=== PATIENT | female | born 1965 | race Caucasian/White ===

== ENCOUNTER → 2020-12-04 | Outpatient (CLI) | payer OTHER ==
[~2020-12-04] MED LIST: AMLODIPINE BESY10 MG PO; EFFEXOR XR150 MG PO; LASIX 40 MG TAB40 M1 PO; OMEPRAZOLE20 M2 PO
== END ==
LOC: SJCVCIMAG 11:34
PROVIDERS: ATTEND Internal Medicine
DX: I08.3 Combined rheumatic disorders of mitral, aortic and tricuspid valves (principal); I11.9 Hypertensive heart disease without heart failure

== ENCOUNTER → 2020-12-19 | Outpatient (CLI) | payer OTHER ==
[~2020-12-19] VITALS: Ht 157.5 cm; Wt 98.4 kg
[~2020-12-19] MED LIST changes: +ALDACTONE100 MG PO; +CRESTOR20 MG PO; +DEPAKOTE ER500 M1 PO; +ESCITALOPRAM OX20 MG PO; +NORVASC10 MG PO; +OXTELLAR XR300 MG PO; +VITAMIN B-122000 MC1 PO; +VITAMIN B-6100 MG PO; +XANAX 0.5 MG0.5 M1 PO
[2020-12-19 07:25] VITALS: BP 126/64
[2020-12-19 07:36] LABS: HEMATOCRIT 37.2 % (37.0-47.0); HEMOGLOBIN 12.7 gm/dL (12.0-15.0); MCH 32.2 pg (26.0-34.0); MCHC 34.1 g/dL (28.0-37.0); MCV 94.5 fL (80.0-100.0); RBC 3.93 mil/uL (4.20-5.00); RDW 13.1 % (10.5-14.5); WBC 5.2 thou/uL (4.0-11.0)
[2020-12-19 07:44] LABS: CALCIUM 8.5 mg/dL (8.5-10.1); CREATININE 1.1 mg/dL (0.6-1.0); POTASSIUM 3.7 mmol/L (3.5-5.1)
--- NOTE | 2020-12-19 09:09 | TEE ---
[facility] [place] [address] TRANSESOPHAGEAL ECHOCARDIOGRAM Name: MAGDALENA GALEANO Room #: REG TOD Henry#: [id number] Admission: 12/19/20 Attend Phys: Dave Richardson MD, Discharge: Date of : 67 Report #: [id number] THIS REPORT FOR: cc: Aaliyah Ballard MD, Cynthia MD Lundgren,Dave Augustine MD [facility] ~ APPROVED REPORT Study performed: 12/19/2020 07:53:56 EXAM: Comprehensive 2D, Doppler, and color-flow Echocardiogram Patient Location: Out-Patient Room #: 9 Status: routine BSA: 1.98 HR: 63 bpm BP: 136/61 mmHg Rhythm: NSR Other Information Study Quality: Excellent Indications Aortic Valve Disease Echo Enhancing Agent Indication: Rule out Shunt Agent(s) / Amount(s) Used: Agitated Saline 7 cc Procedure After obtaining informed consent, patient underwent transesophageal echo in the [employer]. Type of Sedation : Conscious Sedation Sedation was administered by Nurse. Sedation start time: 0800 Case end Time: 8010 Sedation was achieved intravenously with: Versed (3mg) Fentanyl (100mcg) Transesophageal probe was inserted and advanced into esophagus without difficulty by Dave Richardson MD. Echo enhancement indication: R/O Septal defect. Echo enhancement agent administered: Agitated Saline The NOEMI was performed without complications. Throughout the procedure, the blood pressure, pulse oximetry, cardiac [facility] [address] [address] TRANSESOPHAGEAL ECHOCARDIOGRAM Name: MAGDALENA GALEANO Room #: REG CL [facility].#: [id number] Admission: 12/19/20 Attend Phys: Dave Richardson, Discharge: Date of : 67 Report #: [id number] rhythm, and rate were monitored. The patient tolerated the procedure without adverse effects. Recovery from conscious sedation was uneventful and vital signs were stable. Left Ventricle The left ventricle is normal size. There is normal LV segmental wall motion. Mild concentric left ventricular hypertrophy. The left ventricular systolic function is normal. The left ventricular ejection fraction is within the normal range. LVEF is 60-65%. Right Ventricle The right ventricle is normal size. The right ventricular systolic function is normal. Atria The left atrium size is normal. No thrombus is visualized in the left atrium or appendage. No shunting by contrast bubble injection The right atrium size is normal. Aortic Valve Aortic valve is bicuspid, calcified. Severe stenosis, mild insufficiency Mitral Valve The mitral valve is normal in structure. Mild mitral regurgitation. No evidence of mitral valve stenosis. Tricuspid Valve The tricuspid valve is normal in structure. Mild tricuspid regurgitation. Pulmonic Valve The pulmonary valve is normal in structure. There is no pulmonic valvular regurgitation. Great Vessels The aortic root is normal in size. The ascending aorta is borderline dilated (3.9 cm) IVC is normal in size and collapses >50% with inspiration. Pericardium There is no pericardial effusion. <Conclusion> The left ventricular systolic function is normal. [facility] [address] [place] [address] TRANSESOPHAGEAL ECHOCARDIOGRAM Name: MAGDALENA GALEANO Room #: REG [facility].#: [id number] Admission: 12/19/20 Attend Phys: Dave Richardson, Discharge: Date of : 67 Report #: [id number] There is normal LV segmental wall motion. LVEF is 60-65%. Both atria are normal in size. No thrombus is visualized in the left atrium or appendage. No shunting by contrast bubble injection Aortic valve is bicuspid, calcified. Severe stenosis, mild insufficiency The mitral valve is normal in structure. Mild mitral regurgitation. The ascending aorta is borderline dilated (3.9 cm) There is no pericardial effusion. <ELECTRONICALLY SIGNED> By: Dave Richardson MD, [facility] 12/19/20908 8 8 Dave Richardson MD, [facility] /INF
--- NOTE | 2020-12-19 09:30 | CATHLAB ---
[facility] [place] [address] INVASIVE PROCEDURE REPORT Name: MAGDALENA GALEANO Room #: REG TOD Henry#: [id number] Admission: 12/19/20 Attend Phys: Dave Richardson MD, Discharge: Date of : 67 Report #: [id number] THIS REPORT FOR: cc: Aaliyah Ballard MD, Cynthia MD Lundgren, Craig H. MD [facility] ~ APPROVED REPORT Study performed: 12/19/2020 08:06:18 Patient Details Patient Status: Out-Patient Room #: The patient is a 55 year-old female Event Personnel Dave Richardson Supervisor Building Maintenance, Yas Walker RTR Monitor, Tony Acosta RTR Scrub, Sonam Coley RN clerical production worker Performed Art Access - R femoral artery* Coronary Angiography Only [id number] CORANG Supravalvular Aortography Injection [id number] ISVA Hemostasis w/ Mynx Indication Chest pain Procedure Narrative The patient was brought electively to the Cardiac Catheterization Laboratory and was prepped and draped in a sterile manner. The Right Groin^ was infiltrated with 1% Lidocaine subcutaneous anesthesia. A PINNACLE 6FR Sheath #[id number] sheath was inserted into the RFA^. Coronary angiography was performed using coronary diagnostic catheters. The right coronary system was accessed and visualized with a JR4 catheter. The left coronary system was accessed and visualized with a JL4 catheter. The left ventricle was accessed and visualized with a PIGTAIL catheter. Left ventricular/Aortic Valve gradient assessed via catheter pullback. Closure device was deployed with a 6 Fr MYNXGRIP 6/7F #[id number]. Hemostasis was obtained with manual pressure following sheath removal without any complications. The patient tolerated the procedure well and there were no complications associated with the procedure. There was no hematoma. Intraoperative Conscious Sedation [facility] [address] [place] [address] INVASIVE PROCEDURE REPORT Name: FROYLANMAGDALENA ALBINA Room #: REG Carl#: [id number] Admission: 12/19/20 Attend Phys: Dave Richardson, Discharge: Date of : 67 Report #: [id number] Sedation start time: 826 Case end Time: 899 Fluoro Time: 2.30 minutes Dose: DAP 7983.00 cGycm2 933 mGy Contrast Type and Amount: Visipaque 85 ml Coronary Angiography The patient's coronary anatomy is right dominant. Diagnostic Cath Left Main Normal left main LAD Normal left anterior descending Diagonal 1 Large angiographically normal, single diagonal branch Circumflex Small, nondominant circumflex comprised of a moderate sized marginal branch OM1 Normal OM1 Right Coronary Right coronary is dominant, angiographically normal R PDA Normal posterior descending RPLV Normal posterior lateral branch Left Ventriculography Aortography demonstrated mild dilatation of the ascending thoracic aorta. The aortic valve appeared to be bicuspid and calcified. Trace aortic insufficiency Hemodynamics The aortic pressure is 125/68 mmHg with a mean of 95 mmHg. Conclusion 1. Bicuspid and severely stenotic aortic valve (see echocardiographic findings) 2. Normal left main 3. Normal coronary vasculature. Right coronary dominant circulation 4. Mild dilatation of the thoracic ascending aorta <ELECTRONICALLY SIGNED> By: Dave Richardson MD, [facility] 12/19/20928 8 8 Dave Richardson MD, FAC /INF
== END | disposition home or self-care (01) ==
LOC: CATH 06:22
PROVIDERS: ATTEND Internal Medicine
DX: R07.9 Chest pain, unspecified (principal); I08.3 Combined rheumatic disorders of mitral, aortic and tricuspid valves; I11.0 Hypertensive heart disease with heart failure; I50.9 Heart failure, unspecified; E78.5 Hyperlipidemia, unspecified; K21.9 Gastro-esophageal reflux disease without esophagitis; G47.33 Obstructive sleep apnea (adult) (pediatric); E66.09 Other obesity due to excess calories; Z98.890 Other specified postprocedural states; Z79.899 Other long term (current) drug therapy; Z87.891 Personal history of nicotine dependence; Z82.49 Family history of ischemic heart disease and other diseases of the circulatory system; Z88.8 Allergy status to other drugs, medicaments and biological substances

== ENCOUNTER → 2021-01-22 | Outpatient (CLI) | payer OTHER ==
[~2021-01-22] MED LIST changes: +ADULT LOW DOSE81 MG PO; +ALDACTONE50 MG PO; +AUGMENTIN 875-1 EACH PO; +FOLIC ACID1 MG PO; +IPRAT-ALBUT 0.5-3 ML INH; +IRON325 PO; +LEXAPRO 10 MG T10 M1 PO; +METOPROLOL SUCC50 MG PO; +MIRALAX17 GM PO; +MUCINEX600 MG PO; +NEURONTIN 300M300 M2 PO; +NORVASC5 MG PO; +PACERONE 200 M200 M1 PO
[2021-01-22 13:46] LABS: URINE BILIRUBIN NEGATIVE (Negative); URINE BLOOD NEGATIVE (Negative); URINE CLARITY CLEAR; URINE COLOR YELLOW; URINE GLUCOSE-RANDOM* NEGATIVE (Negative); URINE KETONES TRACE (Negative); URINE LEUKOCYTES-REFLEX NEGATIVE (Negative); URINE NITRITE-REFLEX NEGATIVE (Negative); URINE PROTEIN (DIPSTICK) NEGATIVE (Negative); URINE UROBILINOGEN 0.2 E.U./dl (0.2-1.0)
[2021-01-22 13:49] LABS: ABSOLUTE NEUTROPHILS 4.1 thou/uL (1.4-8.2); BASOPHILS 1.1 % (0.0-2.0); EOSINOPHILS 0.1 % (0.0-3.0); HEMATOCRIT 38.9 % (37.0-47.0); HEMOGLOBIN 13.5 gm/dL (12.0-15.0); LYMPHOCYTES 24.3 % (24.0-44.0); MCH 32.4 pg (26.0-34.0); MCHC 34.6 g/dL (28.0-37.0); MCV 93.9 fL (80.0-100.0); MONOCYTES 8.5 % (1.0-8.0); PLATELET COUNT 197 thou/uL (150-400); RBC 4.15 mil/uL (4.20-5.00); RDW 12.7 % (10.5-14.5); WBC 6.2 thou/uL (4.0-11.0)
[2021-01-22 14:02] LABS: APTT 27.6 Seconds (24.5-32.8); CALCIUM 8.9 mg/dL (8.5-10.1); CREATININE 1.2 mg/dL (0.6-1.0); INR 0.98; POTASSIUM 4.2 mmol/L (3.5-5.1); PROTIME 10.7 Seconds (10.5-12.1); TOTAL BILIRUBIN 0.2 mg/dL (0.2-1.0); TOTAL PROTEIN 7.1 g/dL (6.4-8.2)
--- NOTE | 2021-01-22 15:44 | EKG ---
[address] [place] [address] ELECTROCARDIOGRAM REPORT Name: MAGDALENA GALEANO Room #: REG CL Carl#: [id number] Admission: 01/22/21 Attend Phys: Manas Wilalms MD Discharge: Date of : 67 Report #: [id number] [facility] Test Date: 2021-01-22 Test Time: 13:42:57 Pat Name: MAGDALENA GALEANO Department: Room: Gender: F Glass Deposition Tender: MANFRED FLEMING : 1965 Requested By: Manas Willams Order Number: [id number] : Seng Ernst Measurements Intervals [place] Rate: 72 P: 53 OR: 202 QRS: 36 QRSD: 95 T: 143 QT: 408 QTc: 447 Interpretive Statements Sinus rhythm Borderline prolonged OR interval Abnormal T, consider ischemia, lateral leads Baseline wander in lead(s) V3,V5,V6 Compared to ECG 04/18/2010 18:47:32 Possible ischemia now present Sinus tachycardia no longer present Poor R-wave progression no longer present T-wave abnormality still present Electronically Signed On 01-22-2021 15:43:54 CDT by Seng Ernst [email or web address] <ELECTRONICALLY SIGNED> By: Seng Ernst MD, [facility] 01/22/21 1543 1342 1342 Seng Ernst MD, [facility] /EPI
[2021-01-23 01:06] LABS: GLYCOHEMOGLOBIN (HGB A1C) 5.3 % (4.8-5.6)
== END ==
LOC: PAC 12:37
PROVIDERS: ATTEND Surgery Vascular Surgery
DX: Z01.812 Encounter for preprocedural laboratory examination (principal)

== ENCOUNTER → 2021-01-24 | Outpatient (CLI) | payer OTHER ==
[~2021-01-24] MED LIST changes: -ADULT LOW DOSE81 MG PO; -ALDACTONE50 MG PO; -AUGMENTIN 875-1 EACH PO; -FOLIC ACID1 MG PO; -IPRAT-ALBUT 0.5-3 ML INH; -IRON325 PO; -LEXAPRO 10 MG T10 M1 PO; -METOPROLOL SUCC50 MG PO; -MIRALAX17 GM PO; -MUCINEX600 MG PO; -NEURONTIN 300M300 M2 PO; -NORVASC5 MG PO; -PACERONE 200 M200 M1 PO
--- NOTE | ~2021-01-24 | HC ---
[facility] [place] [address] CONSULTATION Name: MAGDALENA GALEANO Room #: REG RODRÍGUEZJose Henry#: [id number] Admission: 01/24/21 Attend Phys: Brittni Payne DO Discharge: Date of : 67 Report #: [id number] THIS REPORT FOR: cc: Jagruti Lockett MD, Genelle J. MD Lundgren, Craig H. MD [facility] ~ DATE OF SERVICE: 01/24/2021 REASON FOR CONSULTATION: Aortic stenosis. HISTORY OF PRESENT ILLNESS: The patient is a 55-year-old woman with a history of heart block with remote pacemaker implantation. Her history includes hypertension, dyslipidemia, and a bicuspid calcific aortic valve that is now severely stenotic and symptomatic. She is admitted for aortic valve replacement. The patient reports fairly recent history of exertional breathlessness. Recent testing has demonstrated a severely stenotic bicuspid aortic valve. There is mild dilatation of the proximal ascending aorta. Coronary angiography demonstrated normal coronary vasculature. She denies near syncope or syncope. She has had occasional isolated symptomatic premature ventricular complexes, but nothing sustained. Blood pressure readings generally have been well controlled. She has a long history of a seizure disorder and has been under the care of a neurologist for this. No fevers, chills or night sweats. No orthopnea or paroxysmal nocturnal dyspnea. No issues or problems related to her complex pharmacologic regimen. ALLERGIES: She is ALLERGIC TO LARA INHIBITORS. MEDICINES: Include amlodipine 10 mg daily, Depakote 500 mg daily, Lexapro 20 mg daily, Lasix 40 mg daily, omeprazole 20 mg daily, Trileptal 300 mg twice daily, rosuvastatin 20 mg daily, Aldactone 100 mg daily. PAST HISTORY: Medical records have been reviewed and include a history of cholecystectomy, dual chamber pacemaker implantation, dyslipidemia, hypertension, seizure disorder, sleep apnea. SOCIAL HISTORY: She is a former smoker. FAMILY HISTORY: Notable for premature coronary artery disease. REVIEW OF SYSTEMS: All systems negative except as that noted above. PHYSICAL EXAMINATION: GENERAL: A pleasant woman in no distress, 5 feet 2 inches tall, 222 pounds. VITAL SIGNS: Blood pressure is 132/80, heart rate is 65 and regular. There are [facility] [address] [place] [address] CONSULTATION Name: MAGDALENA GALEANO Room #: REG [facility].#: [id number] Admission: 01/24/21 Attend Phys: Brittni Payne DO Discharge: Date of : 67 Report #: [id number] neither xanthelasma, subcutaneous xanthomata, oral mucosal or digital cyanosis or kyphoscoliosis present. CHEST: Clear to auscultation and percussion. CARDIOVASCULAR: Regular rate and rhythm with a harsh 3/6 systolic murmur at the base. ABDOMEN: Soft and nontender. EXTREMITIES: Without cyanosis, clubbing or edema. Radial pulses are 2+. NEUROLOGIC: She is alert with a nonfocal exam. DIAGNOSTIC DATA: EKG, sinus rhythm with first degree AV block, nonspecific ST segment abnormality. She has a Medtronic pacemaker. This is functioning normally. Generally A-pacing and V-pacing less than 1% of the time, JOSEFINA in 2 years. LABORATORY DATA: Sodium 138, potassium 4.2, creatinine 1.2. White count 6.2, hemoglobin 13.5, platelet count 197. Chest x-ray is normal. IMPRESSION: 1. Severe symptomatic aortic stenosis. 2. Bicuspid aortic valve. 3. Hypertension. 4. Dyslipidemia. 5. Sleep apnea. 6. History of heart block with prior pacemaker implantation. 7. Seizure disorder. RECOMMENDATIONS: 1. Postoperative pacemaker interrogation. 2. Continued efforts towards aggressive risk factor modification. 3. Aortic valve replacement. This was discussed in detail. Questions have been answered. We will follow along with you. Thank you for asking me to participate in the patient's care. By: 1157 [id number] Dave Richardson MD, FACC /nt
== END ==
LOC: LAB 10:32
PROVIDERS: ATTEND Student in an Organized Health Care Education/Training Program
DX: Z01.812 Encounter for preprocedural laboratory examination (principal); Z20.822 Contact with and (suspected) exposure to COVID-19

== ENCOUNTER → 2021-01-27 | Outpatient (CLI) | payer OTHER | LOC: SJCVCIMAG 07:22 | PROVIDERS: ATTEND Internal Medicine | DX: I65.23 Occlusion and stenosis of bilateral carotid arteries (principal); I10 Essential (primary) hypertension ==

== ENCOUNTER 2021-01-28 06:11 | Inpatient (IN) | payer OTHER ==
[2021-01-28] VITALS (26 sets, daily range): BP systolic 88–126; BP diastolic 37–61
[~2021-01-28] VITALS: Ht 157.5 cm; Wt 100.7 kg
[2021-01-28 12:46] LABS: HEMATOCRIT 22.3 % (37.0-47.0); HEMOGLOBIN 7.5 gm/dL (12.0-15.0); MCH 32.2 pg (26.0-34.0); MCHC 33.6 g/dL (28.0-37.0); MCV 95.6 fL (80.0-100.0); RBC 2.33 mil/uL (4.20-5.00); RDW 12.4 % (10.5-14.5); WBC 6.4 thou/uL (4.0-11.0)
[2021-01-28 13:01] LABS: APTT 28.7 Seconds (24.5-32.8); PROTIME 17.9 Seconds (10.5-12.1)
[2021-01-28 13:05] LABS: INR 1.68
[2021-01-28 13:32] LABS: POC BE -1 mmol/L (-2.0 to +3.0); POC CA IONIZED 4.5 mg/dL (4.5-5.3); POC GLUCOSE 134 mg/dL (70-99); POC HCO3 23.6 mmol/L (22.0-26.0); POC HEMOGLOBIN 7.5 g/dL (12.0-15.0); POC POTASSIUM 3.9 mmol/L (3.5-5.1); POC SODIUM 140 mmol/L (136-145); POC pCO2 36.3 mmHg (35.0-45.0); POC pH 7.421 (7.360-7.450)
[2021-01-28 13:32] LABS: POC BE 4 mmol/L (-2.0 to +3.0); POC CA IONIZED 3.8 mg/dL (4.5-5.3); POC GLUCOSE 117 mg/dL (70-99); POC HCO3 28.2 mmol/L (22.0-26.0); POC HEMOGLOBIN 8.5 g/dL (12.0-15.0); POC POTASSIUM 4.1 mmol/L (3.5-5.1); POC SODIUM 138 mmol/L (136-145); POC pCO2 39.9 mmHg (35.0-45.0); POC pH 7.458 (7.360-7.450)
[2021-01-28 13:32] LABS: POC BE 2 mmol/L (-2.0 to +3.0); POC GLUCOSE 158 mg/dL (70-99); POC HCO3 27.2 mmol/L (22.0-26.0); POC HEMOGLOBIN 7.8 g/dL (12.0-15.0); POC POTASSIUM 4.4 mmol/L (3.5-5.1); POC SODIUM 138 mmol/L (136-145); POC pCO2 44.1 mmHg (35.0-45.0); POC pH 7.399 (7.360-7.450)
[2021-01-28 13:32] LABS: POC BE 5 mmol/L (-2.0 to +3.0); POC CA IONIZED 4.6 mg/dL (4.5-5.3); POC GLUCOSE 104 mg/dL (70-99); POC HEMOGLOBIN 12.9 g/dL (12.0-15.0); POC POTASSIUM 4.1 mmol/L (3.5-5.1); POC SODIUM 138 mmol/L (136-145); POC pCO2 38.7 mmHg (35.0-45.0); POC pH 7.482 (7.360-7.450)
[2021-01-28 13:32] LABS: POC BE -3 mmol/L (-2.0 to +3.0); POC CA IONIZED 4.2 mg/dL (4.5-5.3); POC GLUCOSE 117 mg/dL (70-99); POC HCO3 21.4 mmol/L (22.0-26.0); POC HEMOGLOBIN 9.9 g/dL (12.0-15.0); POC POTASSIUM 4.4 mmol/L (3.5-5.1); POC SODIUM 141 mmol/L (136-145); POC pCO2 34.1 mmHg (35.0-45.0); POC pH 7.406 (7.360-7.450)
[2021-01-28 13:32] LABS: POC BE 3 mmol/L (-2.0 to +3.0); POC GLUCOSE 175 mg/dL (70-99); POC HCO3 27.8 mmol/L (22.0-26.0); POC HEMOGLOBIN 7.5 g/dL (12.0-15.0); POC SODIUM 135 mmol/L (136-145); POC pCO2 43.4 mmHg (35.0-45.0); POC pH 7.414 (7.360-7.450)
[2021-01-28 13:32] LABS: POC BE 3 mmol/L (-2.0 to +3.0); POC CA IONIZED 4.1 mg/dL (4.5-5.3); POC GLUCOSE 142 mg/dL (70-99); POC HCO3 28.9 mmol/L (22.0-26.0); POC HEMOGLOBIN 8.5 g/dL (12.0-15.0); POC POTASSIUM 4.4 mmol/L (3.5-5.1); POC SODIUM 139 mmol/L (136-145); POC pCO2 51.2 mmHg (35.0-45.0); POC pH 7.359 (7.360-7.450)
[2021-01-28 13:32] LABS: POC BE 3 mmol/L (-2.0 to +3.0); POC CA IONIZED 4.1 mg/dL (4.5-5.3); POC GLUCOSE 180 mg/dL (70-99); POC HCO3 27.9 mmol/L (22.0-26.0); POC HEMOGLOBIN 8.2 g/dL (12.0-15.0); POC POTASSIUM 4.4 mmol/L (3.5-5.1); POC SODIUM 139 mmol/L (136-145); POC pCO2 46.2 mmHg (35.0-45.0); POC pH 7.388 (7.360-7.450)
[2021-01-28 13:32] LABS: POC BE 7 mmol/L (-2.0 to +3.0); POC CA IONIZED 4.3 mg/dL (4.5-5.3); POC GLUCOSE 123 mg/dL (70-99); POC HCO3 29.2 mmol/L (22.0-26.0); POC HEMOGLOBIN 12.2 g/dL (12.0-15.0); POC POTASSIUM 3.8 mmol/L (3.5-5.1); POC SODIUM 137 mmol/L (136-145); POC pCO2 34.5 mmHg (35.0-45.0); POC pH 7.535 (7.360-7.450)
[2021-01-28 14:51] LABS: HEMATOCRIT 32.3 % (37.0-47.0); MCH 32.2 pg (26.0-34.0); MCHC 33.8 g/dL (28.0-37.0); MCV 95.4 fL (80.0-100.0); RBC 3.39 mil/uL (4.20-5.00); RDW 12.7 % (10.5-14.5)
[2021-01-28 14:53] LABS: CALCIUM 7.5 mg/dL (8.5-10.1); CREATININE 1.2 mg/dL (0.6-1.0); MAGNESIUM 2.5 mg/dL (1.8-2.4); POTASSIUM 5.3 mmol/L (3.5-5.1)
[2021-01-28 14:53] LABS: BE(vivo) -2.4 mmol/L (-2 to +3); HCO3 20.3 mmol/L (22.0-26.0); PCO2 28.5 mmHg (35.0-45.0); PO2 116.2 mmHg (80.0-100.0); sO2 98.5 % (92.0-98.0)
[2021-01-28 14:54] LABS: HEMOGLOBIN 10.9 gm/dL (12.0-15.0)
[2021-01-28 15:03] LABS: APTT 27.4 Seconds (24.5-32.8); INR 1.21; PROTIME 13.1 Seconds (10.5-12.1)
--- NOTE | 2021-01-28 17:24 | NUR ---
PT ARRIVED FROM OR AT 1430 TO ICU ROOM 251 ACCOMPANIED BY OR NURSING STAFF, ANESTHESIOLOGIST AND NAHOMI LY. PT INTUBATED AND SEDATED WITH PRECEDEX. PT WAS CONNECTED TO ICU MONITORS. PT HAS RIGHT SWAN UMESH, RIGHT RADIAL ART LINE. RIGHT FEMORAL ART LINE. PT WAS GIVEN FFP IMMEDIATELY AFTER ARRIVING TO ICU.PATIENT'S MOTHER UPDATED ON PATIENT SITUATION AND WAS INFORMED BY ICU VISITATION POLICY, MASK MANDATE AND ICU PHONE NUMBERS. CONTINUE TO MONITOR.
[2021-01-28 19:29] LABS: BE(vivo) -4.2 mmol/L (-2 to +3); HCO3 21.9 mmol/L (22.0-26.0); PCO2 44.3 mmHg (35.0-45.0); PO2 86.7 mmHg (80.0-100.0); pH 7.312 (7.360-7.450); sO2 95.8 % (92.0-98.0)
[2021-01-28 21:38] LABS: BE(vivo) -4.1 mmol/L (-2 to +3); HCO3 22.1 mmol/L (22.0-26.0); PCO2 44.7 mmHg (35.0-45.0); PO2 108.6 mmHg (80.0-100.0); sO2 97.5 % (92.0-98.0)
[2021-01-28 21:39] LABS: pH 7.311 (7.360-7.450)
--- NOTE | 2021-01-28 23:07 | NUR ---
1899- Patient placed on CPAP 1929- ABG drawn and resulted. Dr. Willams at bedside; gave okay to extubate. 1944- Patient extubated to 60% faceshield without difficulty. OGT removed. Patient awake and following commands. Repeat ABG within normal limits. Pt with good cough effort. 2244- Fentanyl given for pain releif. U/O noted. CT drainage noted to be minimal. SBP 112
[2021-01-29] VITALS (63 sets, daily range): BP systolic 95–145; BP diastolic 47–73
[2021-01-29 05:05] LABS: HEMOGLOBIN 9.6 gm/dL (12.0-15.0); MCH 33.1 pg (26.0-34.0); MCHC 34.4 g/dL (28.0-37.0); MCV 96.2 fL (80.0-100.0); RBC 2.91 mil/uL (4.20-5.00); RDW 13.1 % (10.5-14.5); WBC 8.4 thou/uL (4.0-11.0)
[2021-01-29 05:22] LABS: CALCIUM 7.2 mg/dL (8.5-10.1); CREATININE 1.3 mg/dL (0.6-1.0); MAGNESIUM 2.5 mg/dL (1.8-2.4); POTASSIUM 4.4 mmol/L (3.5-5.1)
--- NOTE | 2021-01-29 05:45 | NUR ---
Patient has been fairly comfortable throughout the night. Fentanyl given x3 for pain management. Heart rate and rhythm stable. Blood pressures have come up to the 120's from the 90's. Adequate oxygenation on 4L per NC. Good cough effort. Unable to sit patient upright or get out of bed due to the femoral arterial line. No fevers. Am labs sent and results reviewed. See documentation on interventions for assessment details. Patient is progressing towards goals.
--- NOTE | 2021-01-29 07:16 | EKG ---
[address] [place] [address] ELECTROCARDIOGRAM REPORT Name: MAGDALENA GALEANO Room #: 251-P ADM IN M.R.#: [id number] Admission: 01/28/21 Attend Phys: Manas Willams MD Discharge: Date of : 67 Report #: [id number] [facility] Test Date: 2021-01-28 Test Time: 14:47:54 Pat Name: MAGDALENA GALEANO Department: Room: 251 Gender: F Taker Down: DAVID : 1965 Requested By: Filemon Lagunas Order Number: [id number] MD: Seng Ernst Measurements Intervals [place] Rate: 62 P: 75 CA: 227 QRS: 55 QRSD: 85 T: 128 QT: 489 QTc: 497 Interpretive Statements Sinus rhythm Prolonged CA interval Compared to ECG 01/22/2021 13:42:57 T-wave abnormality no longer present Electronically Signed On 01-29-2021 7:16:44 CDT by Seng Ernst [email or web address] <ELECTRONICALLY SIGNED> By: Seng Ernst MD, [facility] 01/29/21 0716 1447 1447 Seng Ernst MD, FACC /EPI
--- NOTE | 2021-01-29 07:51 | O ---
[facility] [place] [address] OPERATIVE REPORT Name: MAGDALENA GALEANO Room #: 251-P ADM IN M.R.#: [id number] Admission: 01/28/21 Attend Phys: Manas Willams MD Discharge: Date of : 67 Report #: [id number] THIS REPORT FOR: cc: Jagruti Lockett MD, Genelle J. MD Forman,Manas Ott MD ~ DATE OF SERVICE: 01/28/2021 PREOPERATIVE DIAGNOSIS: Aortic valve stenosis. POSTOPERATIVE DIAGNOSIS: Aortic valve stenosis. OPERATION: Aortic valve replacement with 21 mm Cr-Ortega Inspiris device and right femoral artery line placement. SURGEON: Dr. Manas Willams. MANAGER PROCESS IMPROVEMENT: NAHOMI Diaz. ANESTHESIA: General. INDICATIONS: The patient is a 55-year-old with what appears to be aortic valve stenosis related to a calcified bicuspid valve. The patient has normal coronary arteries. The patient has increasing fatigue and exertion on activity and is quite limited. The patient had been evaluated and rejected for TAVR and minimally invasive approach. The patient was counseled regarding choices for aortic valve prosthesis including comparing and contrasting mechanical and biological devices with the prospect of transarterial valve replacement for a prosthetic valve failure in the future and the patient chose to avoid the anticoagulation needed with the mechanical valve and opted for the biological device. FINDINGS AND TECHNIQUE: After general anesthesia was established, exposure was obtained through median sternotomy. Pericardial well was made. Cannulation sutures were placed. Heparin was given. Aorta was cannulated. Right atrium was cannulated. Cardioplegia needle was positioned in the aortic root. Retrograde cardioplegia catheter was placed in the coronary sinus. Cardiopulmonary bypass was established. Aorta was cross clamped. Antegrade and retrograde cardioplegia were given. Ice was poured into the pericardial well. The heart was stopped. During electromechanical arrest, the aortic valve was replaced, cardioplegia was given every 15 minutes through the retrograde catheter and additional doses were [facility] [address] [place] [place] [address] OPERATIVE REPORT Name: MAGDALENA GALEANO Room #: 251-P ADM IN M.R.#: [id number] Admission: 01/28/21 Attend Phys: Manas Willams MD Discharge: Date of : 67 Report #: [id number] also given directly into the right coronary ostium. An aortotomy was made approximately 15 mm above the right coronary ostium. The aortic valve was exposed. The aortic valve was severely calcified. It looked as though the non and right coronary cusps were fused, but the entire valve was severely calcified. The calcified leaflets were excised, the calcified annulus was debrided. When the annulus was satisfactory for implant the cavity of the ventricle was irrigated and then interrupted Ethibond sutures were placed sequentially through the [place] annulus and then through the sewing ring of a 21 valve chosen for both annulus and the patient size. The device was lowered into place and sutures were secured with the Cor-Knot device. The valve appeared to seat nicely. The aortotomy was closed using Carrel technique and then the patient was placed in Trendelenburg. Warm retrograde cardioplegia was given followed by warm continuous blood to the coronary sinus. When this infusion was complete, the crossclamp was removed. Deairing maneuvers were performed. As the patient warmed, nice cardiac activity resumed, chest tubes and pacing wires were placed. When the patient was warmed, she was weaned from cardiopulmonary bypass. Venous cannula was removed. Protamine was given, the aortic cannula was removed. When hemostasis was satisfactory, chest was irrigated with antibiotic solution and closed in the usual fashion. It should be mentioned that at the outset of the case there was difficulty obtaining a decent arterial blood pressure through the radial line and for this reason, right femoral line was placed and secured in position and this was the monitor that we used throughout the case. All counts were reported as correct. <ELECTRONICALLY SIGNED> By: Manas Willams MD 01/29/21 0751 1553 1632 Manas Willams MD /nt
--- NOTE | 2021-01-29 08:19 | NUR ---
RD consult received. S/P aortic valve replacement due to stenosis. POD 1. Still npo. Hx HLD, CHF. Extreme obesity, BMI 40.2. Rec advance diet when medically appropriate to heart healthy. Will address any nutrition education needs once transferred out of ICU.
--- NOTE | 2021-01-29 15:54 | EKG ---
[address] [place] [address] ELECTROCARDIOGRAM REPORT Name: MAGDALENA GALEANO Room #: 251-P ADM IN M.R.#: [id number] Admission: 01/28/21 Attend Phys: Manas Willams MD Discharge: Date of : 67 Report #: [id number] [facility] Test Date: 2021-01-29 Test Time: 10:31:18 Pat Name: MAGDALENA GALEANO Department: Room: 251 Gender: F Supply Clerk: luis armando : 1965 Requested By: Filemon Lagunas Order Number: [id number] : Seng Ernst Measurements Intervals [place] Rate: 82 P: 63 PA: 202 QRS: 26 QRSD: 75 T: 143 QT: 387 QTc: 452 Interpretive Statements Sinus rhythm Borderline prolonged PA interval Low voltage, precordial leads Repol abnrm suggests ischemia, lateral leads Compared to ECG 01/28/2021 14:47:54 Low QRS voltage now present Early repolarization now present Possible ischemia now present Electronically Signed On 01-29-2021 15:54:02 CDT by Seng Ernst [email or web address] <ELECTRONICALLY SIGNED> By: Seng Ernst MD, FAC 01/29/21 1554 1031 1031 Seng Ernst MD, [facility] /EPI
[2021-01-29 17:00] LABS: FOLIC ACID 2.1 ng/mL (8.6-58.9)
--- NOTE | 2021-01-29 17:08 | NUR ---
Chart reviewed and case discussed with the care team. Pt is s/p AVR pod#1 and remains in the ICU with CT in place. She was extubated yesterday and started working with therapy today. She is from home and lives with her mother and sister. She has 4 steps into the home and 8 up to the bedroom. She was indep with gait and adl's prior to admission, works and has no dme. Health ins per her employer and pcp is Dr Jagruti Lockett. No cm interventions are indicated at this time. DC plan is outpt cardiac rehab. CM to follow along and reassess once in CCU should dc needs arise.
[2021-01-30] VITALS (23 sets, daily range): BP systolic 108–158; BP diastolic 49–80
--- NOTE | 2021-01-30 05:25 | NUR ---
Patient tired from the day. Pt states she is ready for bed. HS med given, including neurontin for the arm pain. Patient states it is a bruning, constant, sharp pain from elbow to fingers. Pain meds given twice this shift. Patient has been sleeping well. Heart rate and rhythm stable in the 70's. Blood pressures 140-150s. Afebrile. Adequate oxygenation on 4L overnight. Some sleep apnea noted. Frequent assist with cough/deep breathing. No family called this shift. See documentation on interventions for assessment details. Patient is progressing towards goals.
[2021-01-30 05:27] LABS: HEMATOCRIT 27.6 % (37.0-47.0); HEMOGLOBIN 9.5 gm/dL (12.0-15.0); MCH 33.2 pg (26.0-34.0); MCHC 34.3 g/dL (28.0-37.0); MCV 96.9 fL (80.0-100.0); RBC 2.85 mil/uL (4.20-5.00); RDW 13.2 % (10.5-14.5); WBC 11.9 thou/uL (4.0-11.0)
[2021-01-30 05:50] LABS: ALBUMIN 3.2 g/dL (3.4-5.0); CALCIUM 7.8 mg/dL (8.5-10.1); POTASSIUM 4.5 mmol/L (3.5-5.1); TOTAL BILIRUBIN 0.3 mg/dL (0.2-1.0)
--- NOTE | 2021-01-30 11:56 | NUR ---
PT ASSISTED TO CHAIR AT 0800 FOR BREAKFAST. SPO2 IS 92-94%, SBP 130S, AND RR IS REGULAR AND EVEN 16-18 BPM. HER UO IS ADEQUATE. PT IS SLEEPY AND WEAK. WILL CONTINUE TO MONITOR.
--- NOTE | 2021-01-30 12:07 | PATH ---
[facility] [address] [place] [address] PATHOLOGY RPT PROCEDURE Name: MAGDALENA GALEANO Room #: 251-P ADM IN M.R.#: [id number] Admission: 01/28/21 Date of : 67 Discharge: Report #: [id number] Path Case #: [id number] [facility] Accession Number: [id number] . 01 Material submitted: . aortic body - AORTIC VALVE . 01 Clinical history: . AORTIC VALVE REPLACEMENT . 02 Diagnosis: Aortic valve, replacement: - Fragments of valve material with calcification and myxoid degeneration. . (IUV:pit; 01/29/2021) QT 01/29/2021 1417 Local . 02 Electronically signed: . Emerita Lama MD, Pathologist NPI- [id number] . 01 Gross description: . The specimen is received in formalin, labeled "Ena, Magdalena M, aortic valve". It consists of multiple michelle-white, irregular, focally calcified soft tissue fragments ranging from 0.3-2.5 cm in greatest dimension. The 2 largest fragments appear grossly consistent with semilunar heart valves. Sectioning reveals white-yellow, focally calcified cut surfaces. Mat Machine Tender sections are submitted in A1 following decalcification. (MRF; 01/28/2021) MFE/MFE 01/29/2021 1416 Local . 02 Pathologist provided ICD-10: I35.0 . 02 CPT . 410032 Specimen Comment: A courtesy copy of this report has been sent to [phone] Specimen Comment: Report sent to Specimen Comment: A duplicate report has been generated due to demographic updates. Performed at: [address] [id number] MD Luis Eduardo Kitchen MD Phone: [phone] Performed at: [address] [id number] [address] [address] PATHOLOGY RPT PROCEDURE Name: EDWIN GALEANOY ALBINA Room #: 251-P [facility] IN M.R.#: [id number] Admission: 01/28/21 Date of : 67 Discharge: Report #: [id number] Path Case #: [id number] MD Emerita Lama MD Phone: [phone]
[2021-01-31] VITALS (12 sets, daily range): BP systolic 99–165; BP diastolic 59–76
--- NOTE | 2021-01-31 15:54 | NUR ---
Dilshad visited with eloisa via phone call, r/t hh if needed for dc, possible over the weekend or wednesday. Referral sent to [facility] per eloisa request. dcp :home with ever kincaid, bedside nurse fax dc order and summ to [phone], phone # [phone]
[2021-02-01 00:06] VITALS: BP 114/68
[2021-02-01 04:23] VITALS: BP 120/63
[2021-02-01 05:54] LABS: ALBUMIN 2.8 g/dL (3.4-5.0); CALCIUM 8.2 mg/dL (8.5-10.1); CREATININE 0.9 mg/dL (0.6-1.0); POTASSIUM 4.8 mmol/L (3.5-5.1); TOTAL BILIRUBIN 0.4 mg/dL (0.2-1.0); TOTAL PROTEIN 6.1 g/dL (6.4-8.2)
[2021-02-01 06:00] LABS: HEMATOCRIT 25.4 % (37.0-47.0); HEMOGLOBIN 8.6 gm/dL (12.0-15.0); MCH 32.5 pg (26.0-34.0); MCHC 33.7 g/dL (28.0-37.0); MCV 96.2 fL (80.0-100.0); RBC 2.64 mil/uL (4.20-5.00); RDW 13.1 % (10.5-14.5); WBC 7.1 thou/uL (4.0-11.0)
[2021-02-01 07:45] VITALS: BP 121/69
--- NOTE | 2021-02-01 07:55 | NUR ---
PT UP TO BSC WITH ASSTX1, INCISION WITH WOUND VAC REMAINS CDI, ENCOURAGED IS AND C&DB, SOA WITH ACTIVITY, PRN PAIN MED GIVEN AT HS, PT REPOSITIONED NEEDED AND ASSISTED UP TO BSC, REPORT GIVEN TO NEXT SHIFT TO CON'T WITH PPOC.
[2021-02-01 13:40] VITALS: BP 106/58
--- NOTE | 2021-02-01 15:22 | NUR ---
PT ALERT AND ORIENTED TIMES FOUR. VSS. PT C/O PAIN PRN PAIN MEDICATIONS GIVEN WITH COMPLETE RELEIF. WOUND VAC TO CHEST INTACT. PT UP TO THE BSC WITH ASSIST OF ONE. PT WORKS WELL WITH PT/OT. PT TOELARTES MEDS, BUT HAS POOR APPETITE. PT SISTER AT BEDSIDE. PT PROGRESING TOWRADS POC GOALS.
[2021-02-01 15:45] VITALS: BP 109/58
[2021-02-01 18:36] LABS: HEMATOCRIT 25.5 % (37.0-47.0); HEMOGLOBIN 8.6 gm/dL (12.0-15.0)
[2021-02-01 19:32] VITALS: BP 134/74
[2021-02-02 00:04] VITALS: BP 146/69
--- NOTE | 2021-02-02 02:51 | NUR ---
PT IS ALERT AND ORIENTED X4. LUNGS ARE CLEAR TO DIMINISHED. BOWEL SOUNDS ROUND AND ACTIVE. VOIDS PER BEDSIDE COMMODE. PT COMPLAINS OF DULL ACHY PAIN AND MEDICATED ON JUL FOR PAIN MEDS AND THEN PT REST. WOUND VAC TO CHEST AND WORKING. INCENTIVE SPIROMETRY USED DURING THE NIGHT. COMPLAINS IT HURTS WHEN SHE COUGHS. EXPLAIN COUGHING AND DEEP BREATHING IS GOOD FOR HER POST OP SURGERY. ON O2 AT 2 LITERS NASAL CANULA. AND CALL LIGHT WITHIN REACH IF NEEDS NURSING ASSISTANCE.
[2021-02-02 04:19] VITALS: BP 135/67
[2021-02-02 08:26] VITALS: BP 127/62
[2021-02-02 12:57] VITALS: BP 124/57
[2021-02-02 16:16] VITALS: BP 118/51
[2021-02-02 17:16] LABS: RBC 2.55 mil/uL (4.20-5.00); WBC 6.8 thou/uL (4.0-11.0)
[2021-02-02 17:18] LABS: HEMATOCRIT 25.1 % (37.0-47.0); HEMOGLOBIN 8.6 gm/dL (12.0-15.0); MCH 33.8 pg (26.0-34.0); MCHC 34.4 g/dL (28.0-37.0); MCV 98.3 fL (80.0-100.0); RDW 13.1 % (10.5-14.5)
[2021-02-02 17:26] LABS: CALCIUM 7.6 mg/dL (8.5-10.1); CREATININE 0.8 mg/dL (0.6-1.0); MAGNESIUM 2.4 mg/dL (1.8-2.4); POTASSIUM 5.3 mmol/L (3.5-5.1); TOTAL BILIRUBIN 0.6 mg/dL (0.2-1.0); TOTAL PROTEIN 5.8 g/dL (6.4-8.2)
[2021-02-02 19:06] LABS: ABSOLUTE NEUTROPHILS 5.6 thou/uL (1.4-8.2); METAMYELOCYTES 1 %; NUCLEATED RBCS 6 /100WBC
--- NOTE | 2021-02-02 19:06 | NUR ---
PT ALERT AND ORIENTED TIMES FOUR. VSS. PT C/O PAIN PRN PAIN MEDICATIONS WITH GOOD RELEIF. WOUND VAC TO CHEST INTACT. PT TOLERATES MEDS AND MEALS. PT UP SITTING IN THE CHAIR FOR MOST OF THE SHIFT. PT DID WALK AROUND HER ROOM WITH THE WELFARE OFFICER. PT MOM AT SISTER VISIT TODAY. PT PROGRESSING TOWRADS POC GOALS.
[2021-02-02 19:07] LABS: LARGE PLATELETS OCCASIONAL; PLATELET COUNT 124 thou/uL (150-400); POLYCHROMASIA OCCASIONAL
[2021-02-02 19:21] VITALS: BP 117/75
[2021-02-03 04:10] LABS: ALBUMIN 2.6 g/dL (3.4-5.0); CALCIUM 7.4 mg/dL (8.5-10.1); CREATININE 0.8 mg/dL (0.6-1.0); DIRECT BILIRUBIN 0.2 mg/dL (<0.1-0.2); MAGNESIUM 2.4 mg/dL (1.8-2.4); PHOSPHORUS 4.2 mg/dL (2.6-4.7); POTASSIUM 4.4 mmol/L (3.5-5.1); TOTAL BILIRUBIN 0.5 mg/dL (0.2-1.0); TOTAL PROTEIN 5.2 g/dL (6.4-8.2)
[2021-02-03 04:18] VITALS: BP 113/60
[2021-02-03 07:17] LABS: ABSOLUTE NEUTROPHILS 3.5 thou/uL (1.4-8.2); BASOPHILS 0.5 % (0.0-2.0); EOSINOPHILS 0.3 % (0.0-3.0); HEMATOCRIT 25.3 % (37.0-47.0); HEMOGLOBIN 8.4 gm/dL (12.0-15.0); LYMPHOCYTES 16.6 % (24.0-44.0); MCH 32.4 pg (26.0-34.0); MCHC 33.3 g/dL (28.0-37.0); MCV 97.2 fL (80.0-100.0); MONOCYTES 11.4 % (1.0-8.0); PLATELET COUNT 130 thou/uL (150-400); POLYS 71.2 % (36.0-66.0); RBC 2.61 mil/uL (4.20-5.00); RDW 13.1 % (10.5-14.5); WBC 4.9 thou/uL (4.0-11.0)
--- NOTE | 2021-02-03 07:35 | NUR ---
ECOURAGE PT TO BE INVOLVED MORE WITH DAILY CARES THIS AM. MINIMAL ASSIST WITH PT TO BEDSIDE KOMODE AND AFTER WHICH PT WAS ABLE TO WALK ACROSS ROOM TO SIT IN CHAIR BY HERSELF FOR BREAKFAST. INSTRUCT PT TO DEMONSTRATE USE OF INCENTIVE SPIROMETER AND PT WAS ABLE TO GET TO 750MLS. INFORM PT WE WILL BE OOB AMBULATING HALLS MORE PER CTS RECOVERY.
--- NOTE | 2021-02-03 07:43 | NUR ---
PT RESTING QUIETLY THRU THE NOC AROUSES EASILY, O2 AT 2L/NC ENCOURAGED TO C&DB ALONG WITH IS, PRN PAIN MED AT HS, WILL CON'T TO MONITOR PER PPOC.
[2021-02-03 08:00] VITALS: BP 124/51
[2021-02-03 12:00] VITALS: BP 96/60
[2021-02-03 16:00] VITALS: BP 133/57
[2021-02-03 19:39] VITALS: BP 117/58
[2021-02-04 04:17] VITALS: BP 131/56
--- NOTE | 2021-02-04 06:00 | NUR ---
pt c/o chest incisional pain prn pain med given, incisions with original dressings remain cdi, encouraged IS and C&DB, up to bsc with ass't, resting quietly in room thru the noc, will con't to monitor per ppoc.
--- NOTE | 2021-02-04 07:37 | EKG ---
[place] [address] [facility] [employer] [address] ELECTROCARDIOGRAM REPORT Name: MAGDALENA GALEANO Room #: 214-P ADM IN M.R.#: [id number] Admission: 01/28/21 Attend Phys: Manas Willams MD Discharge: Date of : 67 Report #: [id number] [facility] Test Date: 2021-02-02 Test Time: 09:09:23 Pat Name: MAGDALENA GALEANO Department: Room: 214 P Gender: F Photovoltaic Installer: JEVON : 1965 Requested By: Manas Willams Order Number: [id number] MD: Seng Ernst Measurements Intervals [place] Rate: 64 P: 73 MI: 212 QRS: 32 QRSD: 94 T: 138 QT: 458 QTc: 473 Interpretive Statements Sinus rhythm Prolonged MI interval Repol abnrm suggests ischemia, lateral leads Compared to ECG 01/29/2021 10:31:18 No significant changes Electronically Signed On 02-04-2021 7:37:05 CDT by Seng Ernst [email or web address] <ELECTRONICALLY SIGNED> By: Seng Ernst MD, [facility] 02/04/21 0737 8 Seng Ernst MD, FACC /EPI
[2021-02-04 08:00] VITALS: BP 112/54
[2021-02-04 09:38] VITALS: BP 121/68
--- NOTE | 2021-02-04 12:07 | NUR ---
PT OFF UNIT TO IR FOR THROACENTESIS.
[2021-02-04 14:47] LABS: COLOR RED; SOURCE RIGHT CHEST; TOTAL VOLUME 58 mL
[2021-02-04 14:48] LABS: CLARITY TURBID
[2021-02-04 15:25] LABS: BF NUCLEATED CELLS 998 /mm3; BF RBC 78273 /mm3
[2021-02-04 16:00] VITALS: BP 119/46
[2021-02-04 16:43] LABS: BF MACROPHAGE 1 %; BF NEUTROPHILS 25 %
[2021-02-04 17:06] LABS: HAV IgM AB (ANTI-HAV IgM) Negative (Negative); HEPATITIS B SURFACE AG Negative (Negative); HEPATITIS C VIRUS AB <0.1 (0.0-0.9)
--- NOTE | 2021-02-04 17:19 | NUR ---
PT HAD THORACETESIS TODAY WITH 600MLS FLUID PULLED OFF. PT AMBULATED FREEDMAN WITH PT/OT AND USED INCENTIVE SPIROMETER WELL. PT TAKING IN GOOD PO AND DENIES PAIN THIS SHIFT. WILL CONTINUE TO ASSESS.
[2021-02-04 20:00] VITALS: BP 114/59
[2021-02-05 05:02] VITALS: BP 101/45
[2021-02-05 05:21] LABS: ALBUMIN 2.6 g/dL (3.4-5.0); CALCIUM 7.9 mg/dL (8.5-10.1); CREATININE 1.2 mg/dL (0.6-1.0); POTASSIUM 3.8 mmol/L (3.5-5.1); TOTAL BILIRUBIN 0.5 mg/dL (0.2-1.0); TOTAL PROTEIN 5.9 g/dL (6.4-8.2)
--- NOTE | 2021-02-05 06:10 | NUR ---
Assumed pt's care this pm shift. ALert and oriented. VSS on 2L. SOB with activity. Up x1 to bsc. Midsternal wound vac dressing c/d/i. Pt slept well this shift. Meds given per emar. Pain med given onetime this shift. Fall precautions in place. Call light within reach. Nursing to continue to monitor.
[2021-02-05 07:24] VITALS: BP 105/54
[2021-02-05] MEDS ORDERED: AUGMENTIN 875-1 EACH PO (13:25)
[2021-02-05] MEDS ORDERED: LEXAPRO 10 MG T10 M1 PO (13:25)
[2021-02-05] MEDS ORDERED: FOLIC ACID1 MG PO (13:25)
[2021-02-05] MEDS ORDERED: PACERONE 200 M200 M1 PO (13:25)
[2021-02-05] MEDS ORDERED: IPRAT-ALBUT 0.5-3 ML INH (13:25)
[2021-02-05] MEDS ORDERED: MIRALAX17 GM PO (13:25)
[2021-02-05] MEDS ORDERED: MUCINEX600 MG PO (13:25)
[2021-02-05] MEDS ORDERED: ADULT LOW DOSE81 MG PO (13:25)
[2021-02-05] MEDS ORDERED: ALDACTONE50 MG PO (13:25)
[2021-02-05] MEDS ORDERED: NEURONTIN 300M300 M2 PO (13:25)
[2021-02-05] MEDS ORDERED: NORVASC5 MG PO (13:25)
[2021-02-05] MEDS ORDERED: IRON325 PO (13:25)
[2021-02-05] MEDS ORDERED: METOPROLOL SUCC50 MG PO (13:25)
[2021-02-05 14:42] VITALS: BP 165/67
--- NOTE | 2021-02-05 17:02 | NUR ---
ASSESSMENT CHARTED - MEDS PER HAKEEM - SHEA DIET AND FLUIDS - NO CO'S OF NAUSEA. NO CO'S OF PAIN - ACCUCHECKS CHARTED -COVERED PER SSI PRN. PT UP TO THE CHAIR AMBULATING IN ROOM - STEADY ON FEET. SEEN BY PYHS AND OCC THERAPY TODAY. WOUND VAC REMIANS INSITU - WOUND SUCTION CHANED TO SMALLER HOME VERSION THIS AM. PT HOME THIS AFTERNOON - INTRUCTION RE HOME MEDS/ CARE AND FOLLOW GIVEN TO PATIENT -STATED UNDERSTANDING OF INSTRUCTION GIVEN. LEFT UNIT VIA WHEELCHAIR - HOME VIA PVT VEHICLE ACCOMPANIED BY MOTHER. NO CO'S AT TIME OF D/C.
--- NOTE | 2021-02-05 17:09 | NUR ---
Patient to dc home with [facility] care. Faxed orders. Sat/Excercise completed and no need for home oxygen. No further needs
[2021-02-06 13:08] LABS: BODY FLUID ALBUMIN 1.7 g/dL (Not Estab.); BODY FLUID AMYLASE 26 U/L (()); BODY FLUID GLUCOSE 118 mg/dL (()); BODY FLUID LDH 273 IU/L (()); BODY FLUID PROTEIN 2.5 g/dL (())
--- NOTE | 2021-02-07 16:06 | PATH ---
[facility] [address] [employer] [place] [address] PATHOLOGY RPT PROCEDURE Name: MAGDALENA GALEANO Room #: 214-P DIS IN M.R.#: [id number] Admission: 01/28/21 Date of : 67 Discharge: 02/05/21 Report #: [id number] Path Case #: [id number] Note [facility] Accession Number: [id number] TESTS RESULT FLAG UNITS REF RANGE LAB Clinician Provided Cytology Information No. of containers..01 Other (Miscellaneous) Source: RIGHT PLEURAL FLUID DIAGNOSIS: 02 RIGHT PLEURAL FLUID NEGATIVE FOR MALIGNANT EPITHELIAL CELLS. REACTIVE MESOTHELIAL CELLS ARE PRESENT. THIS INTERPRETATION INCLUDES EVALUATION OF A CELL BLOCK. MILD CHRONIC INFLAMMATION. Pathologist ICD10: 02 I35.0 Signed out by: 02 Emerita Lama MD, Pathologist NPI- [id number] Performed by: Vanessa Washington, [place] ([facility]) Gross description: 01 25ML, CLOUDY RED, 1 TP 1 CB /LCS 02/06/2021 1604 Local FLAG LEGEND: L-Low Normal,H-High Normal,LL-Alert Low,HH-Alert High <-Panic Low,>-Panic High,A-Abnormal,AA-Critical Abnormal Performed at: [address] [place] [address] Luis Eduardo Kitchen MD, [address] [address] Emerita Lama MD, Performed at: [address], [place], [place] [id number] MD Luis Eduardo Kitchen MD Phone: [phone]
[2021-02-10 16:20] LABS: SOURCE CHEST
== END 2021-02-05 17:00 | disposition home health service (06) | DRG 219 ==
LOC: ICU 06:11 → 2N 06:11 → TBA 06:11 → PRE 11:58 → ICU 15:01 → PRE 15:55 → 2N 01-31 08:05
PROVIDERS: Hospitalist; Internal Medicine; Nurse Practitioner; Physician Assistant; ADMIT Surgery Vascular Surgery; ATTEND Surgery Vascular Surgery
DX: I35.0 Nonrheumatic aortic (valve) stenosis (principal); J96.01 Acute respiratory failure with hypoxia; I50.33 Acute on chronic diastolic (congestive) heart failure; N17.0 Acute kidney failure with tubular necrosis; I13.0 Hypertensive heart and chronic kidney disease with heart failure and stage 1 through stage 4 chronic kidney disease, or unspecified chronic kidney disease; J98.11 Atelectasis; E87.1 Hypo-osmolality and hyponatremia; E78.5 Hyperlipidemia, unspecified; G40.909 Epilepsy, unspecified, not intractable, without status epilepticus; G47.33 Obstructive sleep apnea (adult) (pediatric); F41.9 Anxiety disorder, unspecified; F32.9 Major depressive disorder, single episode, unspecified; K21.9 Gastro-esophageal reflux disease without esophagitis; N18.9 Chronic kidney disease, unspecified; D69.6 Thrombocytopenia, unspecified; R53.81 Other malaise; D50.0 Iron deficiency anemia secondary to blood loss (chronic); Z88.8 Allergy status to other drugs, medicaments and biological substances; Z95.0 Presence of cardiac pacemaker; Z98.891 History of uterine scar from previous surgery; Z90.49 Acquired absence of other specified parts of digestive tract; Z87.891 Personal history of nicotine dependence
CPT/HCPCS: 10078; 10081; 47000; 47001; 47002; 47335; 47382; 48889; 50010; 50011; 50426; 50643; 50953; 51932; 52131; 52259; 52287; 53327; 53358; 55415; 56524; 56525; 56526; 56527; 56528; 56531; 56534; 57080; 57081; 57082; 57216; 58585; 58901; 58918; 62110; 62950; 65003; 65020; 65120; 65130; 65135; 83006; 85076